=== PATIENT | male | born 1990 | race Caucasian/White ===

== ENCOUNTER → 2022-07-05 | Day surgery (SDC) | payer OTHER ==
[~2022-07-05] VITALS: Ht 182.9 cm; Wt 136.1 kg
[~2022-07-05] MED LIST: AMOXICILLIN500 M1 PO; LIPITOR 10MG TA10 MG PO; PRAVACHOL20 MG PO; VITAMIN D PO
[2022-07-05 07:19] LABS: BASOPHIL 0.4 % (0-2); EOSINOPHIL 1.1 % (0-5); HCT 46.2 % (42.0-52.0); LYMPHOCYTE 22.1 % (15-48); MCH 32.1 pg (25.0-31.0); MCHC 34.6 g/dL (32.0-36.0); MCV 92.8 fL (78.0-100.0); MONOCYTE 7.1 % (0-12); MPV 9.4 fL (6.0-9.5); NEUTROPHIL 68.8 % (41-80); NRBC 0; PLT 224 K/uL (150-400); RBC 4.98 M/uL (4.70-6.00); RDW 12.7 % (11.5-14.0); WBC 10.1 K/uL (4.0-10.5)
== END | disposition home or self-care (01) ==
LOC: FAS 05-24 07:30
PROVIDERS: Oral & Maxillofacial Surgery
DX: K02.9 Dental caries, unspecified (principal); K04.7 Periapical abscess without sinus; I10 Essential (primary) hypertension; E66.01 Morbid (severe) obesity due to excess calories; F17.210 Nicotine dependence, cigarettes, uncomplicated; Z68.41 Body mass index [BMI] 40.0-44.9, adult
CPT/HCPCS: D7140; D7210; D7310; 36415; 85025; 93005; J1100; J1885; J2250; J2405; J2704; J7120